=== PATIENT | male | born 1965 ===

== ENCOUNTER 2017-09-04 19:30 | Emergency (ER) | payer OTHER ==
[2017-09-04 19:48] VITALS: RESP 18; O2SAT 99
[2017-09-04] MEDS ORDERED: Lidocaine 2% Inj (20ml) INFIL ONE (19:53)
[2017-09-04] MEDS ORDERED: Lidocaine 2% MPF (5 ml) Inj ONE (19:56)
--- NOTE | 2017-09-04 19:59 | C.PDOC ---
History Of Present Illness 51yo male, comes to ER for evaluation of a laceration on his face, sustained prior to arrival, while at work. Patient reports he was accidentally hit by a truck platform. He denies any head injury, loss of consciousness, syncope, dizziness, drooling or trismus or any other active complaints. Patient states his tetanus vaccination is up to date. He has no other medical complaints. Time Seen by Provider: 09/04/17 19:51 Chief Complaint (Nursing): Abnormal Skin Integrity History Per: Patient History/Exam Limitations: no limitations Onset/Duration Of Symptoms: Hrs Current Symptoms Are (Timing): Still Present Additional History Per: Patient Past Medical History Reviewed: Historical Data, Nursing Documentation, Vital Signs Vital Signs: Last Vital Signs Temp 98.3 F 09/04/17 19:43 Pulse 93 H 09/04/17 19:43 Resp 18 09/04/17 19:43 BP Pulse Ox 99 09/04/17 20:00 - Medical History PMH: No Chronic Diseases Surgical History: No Surg Hx Family History: States: No Known Family Hx - Social History Hx Alcohol Use: Yes Hx Substance Use: No - Immunization History Hx Tetanus Toxoid Vaccination: Yes (April 2017) Hx Influenza Vaccination: No Hx Pneumococcal Vaccination: No Review Of Systems Except As Marked, All Systems Reviewed And Found Negative. Constitutional: Negative for: Fever, Chills Eyes: Negative for: Vision Change Skin: Positive for: Other (laceration to face) Neurological: Negative for: Headache, Dizziness, Other (loss of consciousness) Physical Exam - Physical Exam Appears: Well, Non-toxic, No Acute Distress Skin: Warm, Dry, Other (3 cm linear cutaneous laceration noted to nasolabial fold. no foreign body noted. mild bloody discharges.) Head: Atraumatic, Normacephalic Eye(s): bilateral: PERRL, EOMI Ear(s): Bilateral: Normal Nose: No Flaring, No Discharge, No Deformity, No Tenderness Oral Mucosa: Moist, No Drooling, No Trismus Tongue: Normal Appearing Lips: Normal Appearing Teeth: Normal Dentition, No Tender To Palpation, No Loose Throat: No Drooling Neck: Normal ROM, Trachea Midline, No Midline Cervical Tenderness, No Paracervical Tenderness, No Step Off Deformity, Supple Chest: Symmetrical Back: No Paraspinal Tenderness Extremity: Normal ROM, No Tenderness, No Deformity, No Swelling Neurological/Psych: Oriented x3, Normal Speech, Normal Cognition, Normal Motor, Normal Sensation, Normal Reflexes ED Course And Treatment O2 Sat by Pulse Oximetry: 99 (RA) Pulse Ox Interpretation: Normal Progress Note: Wound repaired using sutures. On re-evlauation, pt is afebrile, hemodynamicaly stable. Ambulatory in Ed with stable gait. PulseOx 98% RA. Head : AT/NC. Neck: Supple, (-) midline tenderness. ENT: laceration to nasolabial fold repaired w/sutures without complictaion. No trismus, no drooling, no nasal deformity or edema. neuorlogicaly intact. Pt has clinical findings c/w hea dinjury, facial laceration. Pt advised OBS 48 hrs for any sign of hea dinjury- return to ED if any new changes, and ref. to f/u with PMD in 2-3 days for re- eavl. return if any new changes. Laceration - Laceration Repair Nasolabial fold Wound Length (In cm): 3 Description Of Wound: Linear (cutaneous) Anesthesia: Lidocaine 2% Wound Examination: Irrigated With Saline, No FB With Wound Exploration, No Tendon Injury With Wound Exploration Wound Closure: Suture (#5) Suture Technique And Material Used: Interrupted, Prolene (5-0), Chromic (5-0#2) Wound Complexity: Intermediate Disposition Counseled Patient/Family Regarding: Diagnosis, Need For Followup - Disposition Referrals: [facility] [Outside] Disposition: HOME/ ROUTINE Disposition Time: 20:29 Condition: STABLE Additional Instructions: OBSERVE 48 HRS FOR ANY SIGN OF HEAD INJURY-RETURN TO ED IMMEDIATELY FOR RE- EVALUATION. keep wound clean, dry Suture removal in 5-7 days Follow up with PMD in2 days for wound check as need return to ED at any time if any sign of infection Instructions: Laceration Repair With Stitches (DC), Minor Head Injury Forms: [employer] (Tajik) Print Language: YAKUT - Clinical Impression Clinical Impression: Laceration of face, Head injury - PA / HOSE CEMENTER / Resident Statement MD/DO has reviewed & agrees with the documentation as recorded. - Scribe Statement The provider has reviewed the documentation as recorded by the Scribe (Diana Vale) Provider Attestation: All medical record entries made by the Scribe were at my direction and personally dictated by me. I have reviewed the chart and agree that the record accurately reflects my personal performance of the history, physical exam, medical decision making, and the department course for this patient. I have also personally directed, reviewed, and agree with the discharge instructions and disposition.
[2017-09-04 20:55] VITALS: BP 146/81; PULSE 74; TEMP 98.5
== END 2017-09-04 21:19 | disposition home or self-care (01) ==
LOC: C.ER 19:30
DX: S01.81XA Laceration without foreign body of other part of head, initial encounter (principal); W22.8XXA Striking against or struck by other objects, initial encounter; Y92.89 Other specified places as the place of occurrence of the external cause; Y99.0 Civilian activity done for income or pay